=== PATIENT | male | born 1995 | race Caucasian/White ===

== ENCOUNTER → 2020-07-31 | Outpatient (CLI) | payer BC ==
[~2020-07-31] MED LIST: ATIVAN1 MG PO; ELIMITE 5%60 GM PO; FLEXERIL10 MG PO; FLOVENT 110 M110 MCG INH
== END | disposition home or self-care (01) ==
LOC: US 08:30
PROVIDERS: ATTEND Nurse Practitioner Family
DX: R79.89 Other specified abnormal findings of blood chemistry (principal)

== ENCOUNTER 2021-05-14 18:11 | Emergency (ER) | payer BC ==
[~2021-05-14] VITALS: Wt 81.6 kg
== END 2021-05-14 21:49 | disposition home or self-care (01) ==
LOC: ED 18:11
DX: S61.412A Laceration without foreign body of left hand, initial encounter (principal); W25.XXXA Contact with sharp glass, initial encounter; Y93.89 Activity, other specified; Y92.89 Other specified places as the place of occurrence of the external cause; Y99.8 Other external cause status

== ENCOUNTER 2024-04-07 19:35 | Emergency (ER) | payer BC ==
[~2024-04-07] VITALS: Ht 172.7 cm; Wt 83.9 kg
[2024-04-07] MEDS ORDERED: Amoxicillin/Clavulanate Pota 875 MG TAB PO ONE (21:20)
[2024-04-07] MEDS ORDERED: AMOX-CLAV 875-1 EACH PO (22:04)
== END 2024-04-07 22:20 | disposition left against medical advice (07) ==
LOC: ED 19:35
DX: S01.511A Laceration without foreign body of lip, initial encounter (principal); S01.83XA Puncture wound without foreign body of other part of head, initial encounter; F41.9 Anxiety disorder, unspecified; F32.A Depression, unspecified; J45.909 Unspecified asthma, uncomplicated; Z98.890 Other specified postprocedural states; Z53.29 Procedure and treatment not carried out because of patient's decision for other reasons; W54.0XXA Bitten by dog, initial encounter; Y93.89 Activity, other specified; Y92.89 Other specified places as the place of occurrence of the external cause; Y99.8 Other external cause status